=== PATIENT | male | born 1960 | race Caucasian/White ===

== ENCOUNTER 2025-06-27 08:22 | Outpatient (AMB) | payer OTHER, SELFPAY ==
--- NOTE | 2025-06-27 08:36 | MHC.PC.OV ---
Vital Signs 06/27/25 08:37 Height 6 ft Weight 260 lb 8 oz BMI 35.3 BP 120/90 H Blood Pressure Location Lt brachial Position Sitting Pulse 65 Pulse Source Pulse Oximeter Temp 97.3 F Temp Source Temporal Artery Scan Pulse Oximetry (%) 99 Oxygen Delivery Method Room Air Intake Visit Reasons: NEW PATIENT Allergies No Known Allergies Allergy (Verified 06/27/25 08:38) Medication List - Last Reconciled 06/27/25 by Matt Melendrez MD No Known Home Meds Tobacco use date assessed: 06/27/25 Dental Screening Dental Screen Date: 06/27/25 Did you have a dental visit in the last 12 months?: No Did you have a dental problem in the last 6 months where you did not have access to dental care?: No Was dental information given to patient?: Patient has dentist HPI HPI Comments History of Present Illness Details The patient is a 64-year-old male with PMH of obesity presenting to [facility] primary care. He reports a history of high cholesterol diagnosed 30-40 years ago. The patient reports he is prone to bronchitis in the winter and currently has a minor scratchy cough. The patient has a history of vasovagal syncope and was previously diagnosed with hypoglycemia. The patient takes no daily medications. His family history is notable for a sister with cervical cancer, but he denies any other family history of cancer. Regarding immunizations, he has received two doses of the COVID-19 vaccine, his last pneumonia vaccine was in 2006, and his last tetanus shot was in 2007. The patient denies smoking and any illicit drug use, and reports very little alcohol consumption. 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 He reports significant weight fluctuation, having previously weighed 210 pounds six years ago and now weighing approximately 255-260 pounds. He has never had a colonoscopy. [facility] Family History (Updated 06/27/25 @ 08:42 by Sindy Henson MA) Mother No problems noted. Father No problems noted. Social History Housing: House Patient Tobacco Use Status: Never used Tobacco Tobacco use type: Cigarette e-Cigarette/Vaping Use: Never Used Second Hand Smoke Exposure: No service: No Current occupational status: other (SELF EMPLOYED ) Cognitive needs: No Hearing needs: No Vision needs: Yes Questionnaire PHQ-9 Over the last 2 weeks, how often have you been bothered by any of the following problems? 1. Little interest or pleasure in doing things: not at all 2. Feeling down, depressed, or hopeless: not at all 3. Trouble falling or staying asleep, or sleeping too much: not at all 4. Feeling tired or having little energy: not at all 5. Poor appetite or overeating: not at all 6. Feeling bad about yourself - or that you are a failure or have let yourself or your family down: not at all 7. Trouble concentrating on things, such as reading the newspaper or watching television: not at all 8. Moving or speaking so slowly that other people could have noticed. Or the opposite - being so fidgety or restless that you have been moving around a lot more than usual: not at all 9. Thoughts that you would be better off or of hurting yourself in some way: not at all Total score: 0 Source: Developed by Drs. Nile Lombardi, Lauren Li, Surya Rodriguez and colleagues, with an educational nagi from [employer]. Thrive Questionnaire Date Thrive assessed: 06/27/25 I am a: Patient What is your living situation today?: I have a steady place to live Within the past 12 months, did the food you bought not last and you didn't have the money to get more?: Often true Within the past 12 months, did you worry whether your food would run out before you got money to buy more?: Often true Do you have trouble paying for medicines?: No Do you have trouble getting transportation to medical appointments?: No Do you have trouble paying your heating and electricity bill?: No Do you have trouble taking care of your child, family member or friend?: No Do you have trouble with day-to-day activities such as bathing, preparing meals, shopping, managing finances, etc.?: No Are you currently unemployed and looking for a job?: No Are you interested in more education?: No Please select the resources that you would like help with: None Currently or been in a relationship where the following occur: I choose not to answer THRIVE Score: 2 AUDIT C Alcohol Use Questionnaire (AUDIT-C) 1. How often do you have a drink containing alcohol?: Never Total Score: 0 BD-7 AMB Questionnaire DB-7 Date DB - 7 assessed: 06/27/25 Feeling nervous, anxious, or on edge: 0 = Not at all Not being able to stop or control worryin = Not at all Worrying too much about different things: 0 = Not at all Trouble relaxin = Not at all Being so restless that it is hard to sit still: 0 = Not at all Becoming easily annoyed or irritable: 0 = Not at all Feeling afraid as if something awful might happen: 0 = Not at all Total DB-7 score (0-4 normal; 5-9 mild; 10-14 moderate; 15-21 severe): 0 Source: Developed by Drs. Nile Lombardi, Lauren Li, Surya Rodriguez and colleagues, with an educational nagi from [employer]. Review of Systems Const Details: As per HPI. Physical exam (Primary Care) Vital Signs: Last Vital Signs Temp 97.3 F 06/27/25 08:37 Pulse 65 06/27/25 08:37 BP 120/90 H 06/27/25 08:37 Pulse Ox 99 06/27/25 08:37 Oxygen Delivery Method Room Air 06/27/25 08:37 BMI result Body Mass Index 35.3 Tobacco/Smoking Status: Tobacco use Status Tobacco use date assessed 06/27/25 06/27/25 08:43 Patient Tobacco Use Status Never used Tobacco 06/27/25 08:43 Tobacco use type Cigarette 06/27/25 08:43 e-Cigarette/Vaping Use Never Used 06/27/25 08:43 PHQ-9: PHQ-9 Score PHQ-9: Total score 0 06/27/25 09:00 Thrive Assessment: Date of Thrive Assessment Date Thrive assessed 06/27/25 06/27/25 08:43 Currently or been in a relationship where the following occur: I choose not to answer Const Other: Pertinent findings are in BOLD GENERAL APPEARANCE NAD, activity normal for age, well developed/ well nourished, no cyanosis, pallor, or diaphoresis. EYES lids/conjunctiva normal. EARS/NOSE/THROAT Mucous membranes moist, nares normal, lips/teeth normal uvula midline without oral pharyngeal erythema, exudate or swelling TMs normal bilaterally. No lymphangitis/lymphedema. HEAD/NECK normocephalic atraumatic, no facial trauma, neck is supple. RESPIRATORY respiratory effort normal, speaks in full sentences, no tripod position, no accessory muscle use. Lungs clear to auscultation without rhonchi, wheezes, rales CARDIAC Regular rate and rhythm, no edema. ABDOMINAL Soft, ND/NT. No evidence of fluid wave. No pulsatile masses on exam, rebound tenderness, Scott sign or pain over Mcburney's point. MUSCLES/EXTREMITIES No abnormal range of motion, no swelling. SKIN Warm, pink and dry. No rashes, dermatoses, petechiae or lesions. NEUROLOGICAL Speech is clear and appropriate. Normal level of consciousness. Gait and coordination are normal. 5/5 strength in all extremities. PSYCH Normal mood and affect. Judgement/competence is appropriate Immunizations Boostrix Tdap 2.5 Lf unit-8 mcg-5 Lf/0.5 mL intramuscular syringe Performing Provider: Matt Melendrez MD [facility] Administered by: Anaya Rodgers RN on 06/27/25 09:19 Dose Route Admin Location Dispensed Lot Number Expiration Date [facility] [employer] 0.5 mL IM Left Deltoid 0.5 mL [id number] 01/27/28 30904-711-87 [facility] Total Dispensed Waste 0.5 mL 0 % VIS Given Date VIS Provided VIS Publication Date 06/27/25 Single Vaccine 21 Eligibility Eligibility Date Funding Source Not [facility] Eligible 06/27/25 Private Coding Level of Care Code New Pt Level 4 (40091) New Pt Prev Care 40-64y(35266) Diagnoses Healthcare maintenance Z00.00 Obesity (BMI 35.0-39.9 without comorbidity) E66.9 Chronic cough R05.3 Time Spent (min) 45 Assessment & Plan Assessment & Plan (1) Healthcare maintenance: Code(s): Z00.00 - Encounter for general adult medical examination without abnormal findings Category: Medical Plan: CBC, CMP, Lipid panel, A1C, TSH w T4, vit D. ordered today. Shingles 2 doses when >50 yo. Declined. COVID: two doses. Completed. Pneumococcal: >50 yo. 18-49 with CKD, lung disease, weakened immune system, Heart disease, DM, cochlear implant. Completed in the past. Flu vaccine: Declined. Tdap: every 10 years. Ordered today. Colonoscopy: 45-75. Ordered today. AAA: 65 -75. Not indicated. CT lun - 80. Not indicated. PSA: 50 -70 every two years. Ordered today. HIV: Ordered. HCV: Ordered. (2) Obesity (BMI 35.0-39.9 without comorbidity): Code(s): E66.9 - Obesity, unspecified Category: Medical Plan: - Counseled the patient on dietary modifications for weight loss. - Recommended eliminating dairy, red meat, bread, and sugar from his diet. - Patient identified cheese as a particular issue and is motivated to make dietary changes. (3) Chronic cough: Code(s): R05.3 - Chronic cough Category: Medical Plan: - Patient reports a minor scratchy cough, which may be related to allergies. - Advised that an [id number] allergy medication may provide relief. Patient declined treatment at this time. Plan As this was an initial visit to establish care, we had a comprehensive discussion about the patient's health history and preventative care. I recommended a screening colonoscopy, explaining that polyps can be removed during the procedure to prevent cancer, and he agreed to the referral. We ordered baseline blood work, which will include screening for HIV and Hepatitis C. 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 I discussed the benefits of the flu shot, but he declined. We had a detailed conversation about his diet and weight. I advised that a diet low in dairy, red meat, bread, and sugar is effective for weight loss, and he was receptive to this advice. Given his history of vasovagal syncope with injections, we discussed safety precautions for his tetanus shot, and he planned to remain at the facility for a short period after the injection before driving. I will see him back in 6 months for follow-up. Orders: Orders Complete Blood Count no Diff Today Z00.00 - Encounter for general adult medical examination without abnormal findings Hemoglobin A1c Today Z00.00 - Encounter for general adult medical examination without abnormal findings Lipid Panel Today Z00.00 - Encounter for general adult medical examination without abnormal findings Prostate Specific Antigen Today Z00.00 - Encounter for general adult medical examination without abnormal findings TDaP Immunization Today Z23 - Encounter for immunization Comprehensive Met. Panel Today Z00.00 - Encounter for general adult medical examination without abnormal findings HIV Ab/Ag Today Z00.00 - Encounter for general adult medical examination without abnormal findings Hepatitis C Antibody Reflex Today Z00.00 - Encounter for general adult medical examination without abnormal findings TSH reflex Free T4 Today Z00.00 - Encounter for general adult medical examination without abnormal findings Vitamin B12 and Folate Today D64.9 - Anemia, unspecified, Z00.00 - Encounter for general adult medical examination without abnormal findings Vitamin D 25-OH Total Today Z00.00 - Encounter for general adult medical examination without abnormal findings Referrals Open Access Screening Colonoscopy Referral Z12.11 - Encounter for screening for malignant neoplasm of colon, Z12.12 - Encounter for screening for malignant neoplasm of rectum
[2025-06-27 08:37] VITALS: BP 120/90; PULSE 65; TEMP 36.3; O2SAT 99; BMI 35.3
== END 2025-06-27 09:22 | disposition home or self-care (01) ==
LOC: HO.HMCH 08:23
PROVIDERS: Visit Provider Internal Medicine
DX: Z00.00 Encounter for general adult medical examination without abnormal findings (principal); E66.9 Obesity, unspecified; Z68.35 Body mass index [BMI] 35.0-35.9, adult; R05.3 Chronic cough; Z23 Encounter for immunization

== ENCOUNTER → 2025-06-27 08:22 | Outpatient (BNVA) | payer OTHER, SELFPAY | PROVIDERS: Visit Provider Internal Medicine | DX: Z00.00 Encounter for general adult medical examination without abnormal findings (principal); E66.9 Obesity, unspecified; Z68.35 Body mass index [BMI] 35.0-35.9, adult; R05.3 Chronic cough; D64.9 Anemia, unspecified; Z23 Encounter for immunization; Z12.11 Encounter for screening for malignant neoplasm of colon | CPT/HCPCS: 90471; 90715; 99386 ==